=== PATIENT | male | born 1965 | race Caucasian/White ===

== ENCOUNTER 2019-08-09 10:48 | Outpatient (REF) | payer BC, SELFPAY ==
[2019-08-15 11:30] LABS: CO2 Total 30 mEq/L (22-32); Chloride 102 mEq/dL (96-110); Glucose 138 mg/dL (70-100); Potassium 5.6 mEq/L (3.5-5.0); Sodium 141 mEq/L (136-145)
[2019-08-15 11:31] LABS: BUN 18 mg/dL (10-26)
[2019-08-15 11:32] LABS: Calcium 9.9 mg/dL (8.5-10.5); eGFR 110 (>60)
== END 2019-08-09 11:08 ==
LOC: NCHCN 10:48
PROVIDERS: PCP Nurse Practitioner Family; Visit Provider Nurse Practitioner Family
DX: E11.9 Type 2 diabetes mellitus without complications (principal)
CPT/HCPCS: 80048

== ENCOUNTER 2019-11-22 15:08 | Outpatient (REF) | payer BC, SELFPAY ==
[2019-11-22 17:50] LABS: Anion Gap 7.5 mmol/L (3-11); BUN 15 mg/dL (7-18); CO2 30.5 mmol/L (21.0-32.0); CREATININE 0.91 mg/dL (0.70-1.30); Calcium 9.5 mg/dL (8.5-10.1); Calculated LDL 128 mg/dL (<100); Chloride 102 mmol/L (98-107); Cholesterol 223 mg/dL (<200); Glucose 100 mg/dL (74-106); HDL Cholesterol 53 mg/dL (40-60); Potassium 4.4 mmol/L (3.5-5.1); Sodium 140 mmol/L (136-145); Triglyceride 214 mg/dL (<150)
== END 2019-11-22 15:28 ==
LOC: NCHCN 15:08
PROVIDERS: PCP Nurse Practitioner Family; Visit Provider Nurse Practitioner Family
DX: Z00.00 Encounter for general adult medical examination without abnormal findings (principal); I10 Essential (primary) hypertension
CPT/HCPCS: 80048; 80061

== ENCOUNTER 2020-06-05 09:08 | Outpatient (REF) | payer BC, SELFPAY ==
[2020-06-05 19:13] LABS: Hemoglobin A1C 8.4 % (<5.7)
[2020-06-05 19:24] LABS: Calculated LDL 90 mg/dL (<100); Cholesterol 157 mg/dL (<200); HDL Cholesterol 45 mg/dL (40-60); Triglyceride 112 mg/dL (<150)
== END 2020-06-05 09:28 ==
LOC: NCHCN 09:08
PROVIDERS: PCP Nurse Practitioner Family; Visit Provider Nurse Practitioner Family
DX: E11.9 Type 2 diabetes mellitus without complications (principal); I10 Essential (primary) hypertension; E78.5 Hyperlipidemia, unspecified; R06.00 Dyspnea, unspecified; M25.861 Other specified joint disorders, right knee
CPT/HCPCS: 80061; 83036

== ENCOUNTER 2020-12-18 20:22 | Outpatient (REF) | payer BC, SELFPAY ==
[2020-12-18 21:13] LABS: Anion Gap 9.3 mmol/L (3-11); BUN 16 mg/dL (7-18); CO2 27.7 mmol/L (21.0-32.0); CREATININE 0.9 mg/dL (0.70-1.30); Calcium 8.9 mg/dL (8.5-10.1); Chloride 107 mmol/L (98-107); Glucose 121 mg/dL (74-106); Potassium 4.7 mmol/L (3.5-5.1); Sodium 144 mmol/L (136-145)
[2020-12-18 21:17] LABS: Hemoglobin A1C 7.4 % (<5.7)
== END 2020-12-18 20:23 | disposition home or self-care (01) ==
LOC: NCHCN 20:22
PROVIDERS: PCP Nurse Practitioner Family; Visit Provider Nurse Practitioner Family
DX: E11.9 Type 2 diabetes mellitus without complications (principal)
CPT/HCPCS: 80048; 83036

== ENCOUNTER 2022-09-23 15:15 | Outpatient (REF) | payer OTHER, SELFPAY ==
[2022-09-23 16:17] LABS: HCT 40.3 % (40.0-50.0); HGB 13.8 g/dL (13.5-17.5); MCH 32.9 pg (27.0-33.0); MCHC 34.2 % (32.0-36.0); MCV 96 fL (80-95); MPV 9.7 fL (8.0-11.0); Platelet Count 256 10^3/uL (130-400); RDW 11.6 % (11.8-14.1); RDW-SD 40.5 fL; WBC 7.48 10^3/uL (4.4-10.8)
[2022-09-23 16:36] LABS: Anion Gap 7.5 mmol/L (3-11); BUN 22 mg/dL (7-18); CO2 29.5 mmol/L (21.0-32.0); Calcium 9.5 mg/dL (8.5-10.1); Calculated LDL 32 mg/dL (<100); Chloride 103 mmol/L (98-107); Cholesterol 115 mg/dL (<200); Estimated GFR 87.24 (mL/min/1.73m2); Glucose 199 mg/dL (74-106); HDL Cholesterol 46 mg/dL (40-60); Potassium 4.9 mmol/L (3.5-5.1); Sodium 140 mmol/L (136-145); Triglyceride 185 mg/dL (<150)
== END 2022-09-23 15:16 | disposition home or self-care (01) ==
LOC: NCHCN 15:15
PROVIDERS: PCP Nurse Practitioner Family; Visit Provider Nurse Practitioner Family
DX: E11.9 Type 2 diabetes mellitus without complications (principal); I10 Essential (primary) hypertension; E78.5 Hyperlipidemia, unspecified
CPT/HCPCS: 80048; 80061; 85027

== ENCOUNTER 2022-12-23 10:26 | Outpatient (REF) | payer OTHER, SELFPAY ==
--- OUTSIDE RECORDS SUMMARY | 2022-12-23 10:29 | XMS_ITS | Continuity of Care Document ---
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(Discharge Diagnosis) - 12/06/22 Discharge Disposition: Home or Self Care Allergies, Adverse Reactions, Alerts No Known Allergies Functional Status 12/06/22 Other exposure to Infectious Disease Non e Immunizations Given and Recorded Vaccine Date Status Refusal Reason tetanus-diphth toxoids (Td) adult/adol 12/01/22 Gi vatar Medications !-Keflex 500 mg oral capsule 500 mg = 1 cap, Oral, QID, # 28 cap, 0 Refill(s), Pharmacy: [facility] #[id number], 182, cm, 12/01/22 6:16:00 EDT, Height/Length Dosing, 92.99, kg, 12/01/22 6:16:00 EDT, Weight Dosing Start Date: 12/01/22 Stop Date: 12/08/22 Status: Ordered aspirin 81 mg =, Oral, Daily, 0 Refill(s) Start Date: 12/01/22 Status: Ordered gabapentin 300 mg oral capsule 300 mg = 1 cap, Oral, TID, # 270 cap, 0 Refill(s) Start Date: 12/01/22 Status: Ordered Lantus Solostar Pen 100 units/mL subcutaneous solution ADMINISTER 50 UNITS UNDER THE SKIN EVERY NIGHT Start Date: 12/01/22 Status: Ordered lisinopril 5 mg oral tablet 5 mg = 1 tab, Oral, Daily, # 30 tab, 0 Refill(s) Start Date: 12/01/22 Status: Ordered metFORMIN 1000 mg oral tablet 1,000 mg = 1 tab, Oral, BID, # 180 tab, 0 Refill(s) Start Date: 12/01/22 Status: Ordered Trulicity Pen 0.75 mg/0.5 mL subcutaneous solution 0.75 mg = 0.5 mL, Subcutaneous, every week, 0 Refill(s) Start Date: 12/01/22 Status: Ordered Vital Signs Most recent to oldest [Reference Range]: 1 Respiratory Rate [12-24 br/min] 16 br/mi n (12/06/22 6:14 PM) Blood Pressure [90-140/60-90 mmHg] 147/8 3mmHg *HI* (12/06/22 6:14 PM) Weight 92.99 kg (12/06/22 6:14 PM) Weight Measured (lbs) 205.008 lb (12/06/22 6:14 PM) Height 182.88 cm (12/06/22 6:14 PM) Height/Length Measured (inches) 72 inch (12/06/22 6:14 PM) BSA Measured 2.17 m2 (12/06/22 6:14 PM) Body Mass Index 27.8 kg/m2 (12/06/22 6:14 PM) Social History Social History Type Response Tobacco Former tobacco user Tobacco Use:. Sex Hospital Discharge Instructions Patient Education 12/06/2022 18:07:10 Traumatic Finger Amputation Traumatic Finger Amputation A traumatic finger amputation is when a person loses part or all of a finger because of an accidentor injury. This condition is a medical emergency. It needs to be treated right away to prevent moredamage to the finger and to save the lost part of the finger, if that is possible. What are the causes? This condition usually results from an accident that involves: ??? A car. ??? Power tools. ??? Factory work. ??? Farm or lawn equipment. What are the signs or symptoms? Symptoms of this condition include: ??? Bleeding. ??? Pain. ??? Damage to surrounding tissues, such as bones, muscles, tendons, and skin. How is this diagnosed? This condition is diagnosed with a physical exam. During the exam, your health care provider will determine how severe the injury is and the best way to treat it. X-rays may be done to check for damage to the surrounding bones and tissues. How is this treated? This condition is treated by cleaning the wound thoroughly and with medicines for pain. Additional treatment depends on the type of injury that you have and how bad it is: ??? If only the tip of your finger was removed, treatment may involve placing a protective bandage (dressing) over the wound and cleaning the wound regularly. ??? If the injury is severe, a portion of skin may be taken from another part of the body (graft) and attached to the wound site until the wound heals. ??? If a large portion of the finger was cut off, treatment may include a surgical procedure to reattach the finger (replantation). Follow these instructions at home: Medicines ??? Take [id number] and prescription medicines only as told by your health care provider. ??? If you were prescribed an antibiotic medicine, use it as told by your health care provider. Do not stop using the antibiotic even if your condition improves. ??? Do not drive or use heavy machinery while taking prescription pain medicine. Wound care ??? Follow instructions from your health care provider about how to take care of your wound. Make sure you: ??? Wash your hands with soap and water before you change your dressing. If soap and water are not available, use hand tourist adviser. ??? Change your dressing as told by your health care provider. ??? Leave stitches (sutures), skin glue, or adhesive strips in place. These skin closures may need to stay in place for 2 weeks or longer. If adhesive strip edges start to loosen and curl up, you maytrim the loose edges. Do not remove adhesive strips completely unless your health care provider tells you to do that. ??? Check your wound every day for signs of infection. Check for: ??? Redness, swelling, or pain. ??? Fluid or blood. ??? Warmth. ??? Pus or a bad smell. General instructions ??? Do exercises to strengthen your finger and hand as directed by your health care provider. ??? Keep your hand raised above the level of your heart when resting. Contact a health care provider if: ??? Your wound does not seem to be healing well. ??? You have redness, swelling, or pain around your wound. ??? You have fluid or blood coming from your wound. ??? Your wound feels warm to the touch. ??? You have pus or a bad smell coming from your wound. ??? You have a fever. Get help right away if: ??? You have redness spreading or extending from your wound. Summary ??? A traumatic finger amputation is when a person loses part or all of a finger because of an accident or injury. ??? This condition is diagnosed with a physical exam. During the exam your health care provider will determine how severe the injury is and the best way to treat it. ??? Follow instructions from your health care provider about how to take care of your wound. This information is not intended to replace advice given to you by your health care provider. Make sure you discuss any questions you have with your health care provider. Document Revised: 11/12/2020 Document Reviewed: 11/12/2020 Else[employer] Patient Education ?? 2021 [employer]. Physician Outpatient Note * Buffy Priest PA-C: PERFORM Event Display: Office Clinic Note Physician Authored Date: [id number] PABLO SPIVEY :1965 Age:57 years Sex:Male Visit Date:12/06/2022 Chief Complaint w/c second visit - dressing change needed History of Present Illness Patient is a 57-year-old male??that presents to the??occupational health office today??for a dressing change??for traumatic amputation of the??distal phalanx of the right middle finger that occurred??[address] employment. ??He was initially seen in the emergency department and diagnosed with a traumatic amputation.?? No pain. ??He is currently taking antibiotics as prescribed. ??Unfortunately has been unable to get into the hand specialist??and will need a new referral to??[facility] in [facility]. Physical Exam Vitals & Measurements RR:??16?? BP:??147/83?? SpO2:??98%?? HT:??182.88??cm?? WT:??92.99??kg?? BMI:??27.8?? BSA:??2.17?? He is well-appearing in no acute distress, very pleasant. Traumatic amputation of the distal aspect??of right middle finger.?No nail plate involvement. No exposed bone. ??Tissue is??pink. ??Surrounding??tissue??is macerated. ??No active bleeding. Good range of motion at the DIP and IP joint. Medical Decision Making: Traumatic amputation distal phalanx??right middle finger: Dressing change completed here in the office.?The tissue appears healthy??without any evidence of infection. ??Very minimal discomfort.?He will continue ibuprofen and Tylenol as needed as well as the oral??antibiotics.?? I did initiatea new referral to [facility] in the [place]??location. ??Patient will contact them tomorrow??for follow-up this week. ??If unable, he will return to our office in 2 days for??another dressing change??return precautions provided.. 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 The referral will be sent and processed tomorrow. Please wait until noon to call. Patient Education Traumatic Finger Amputation Problem List/Past Medical History Ongoing No qualifying data Historical No qualifying data Medications !-Keflex 500 mg oral capsule, 500 mg= 1 cap, Oral, QID aspirin, 81 mg, Oral, Daily gabapentin 300 mg oral capsule, 300 mg= 1 cap, Oral, TID Lantus Solostar Pen 100 units/mL subcutaneous solution lisinopril 5 mg oral tablet, 5 mg= 1 tab, Oral, Daily metFORMIN 1000 mg oral tablet, 1000 mg= 1 tab, Oral, BID Trulicity Pen 0.75 mg/0.5 mL subcutaneous solution, 0.75 mg= 0.5 mL, Subcutaneous, every week Allergies No Known Allergies Social History Electronic Cigarette/Vaping Electronic Cigarette Use: Never. Tobacco Former tobacco user Tobacco Use:. Immunizations Vaccine Date Status tetanus-diphth toxoids (Td) adult/adol 12/01/2022 Given Electronically Signed on 12/06/22 07:38 PM Buffy Priest PA-C Outpatient Summary note * Buffy Priest PA-C: PERFORM Event Display: Ambulatory Patient Summary Authored Date: [id number] PABLO SPIVEY :1965 Age:57 years Sex:Male Visit Date:12/06/2022 Ambulatory Visit Instructions We would like to thank you for allowing us to assist you with your healthcare needs. The following includes patient education materials and information regarding your injury/illness. Your Next Steps Instructions From Your Care Team Please contact [facility] tomorrow??at [phone]. The referral will be sent and processed tomorrow. Please wait until noon to call. Medications What How Much When Instructions Unchanged aspirin 81 Milligrams Oral (given by mouth) Every day Unchanged cephalexin (!-Keflex 500 mg oral capsule) 1 Capsules Oral (given by mouth) 4 times a day Duration: 7 Days Unchanged dulaglutide (Trulicity Pen 0.75 mg/ 0.5 mL subcutaneous solution) 0.5 Milliliters Subcutaneous (under the skin) Every week Unchanged gabapentin (gabapentin 300 mg oral capsule) 1 Capsules Oral (given by mouth) 3 times a day Unchanged insulin glargine (Lantus Solostar Pen 100 units/ mL subcutaneous solution) ADMINISTER 50 UNITS UNDER THE SKIN EVERY NIGHT ?? 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 16 Blood Pressure?? 147/83?? Height?? 72.00 in (182.88 cm) Weight?? 205.04 lb (92.99 kg) BMI?? 27.8 Allergies No Known Allergies Education Materials Traumatic Finger Amputation A traumatic finger amputation is when a person loses part or all of a finger because of an accidentor injury. This condition is a medical emergency. It needs to be treated right away to prevent moredamage to the finger and to save the lost part of the finger, if that is possible. What are the causes? This condition usually results from an accident that involves: ? A car. ? Power tools. ? Factory work. ? Farm or lawn equipment. What are the signs or symptoms? Symptoms of this condition include: ? Bleeding. ? Pain. ? Damage to surrounding tissues, such as bones, muscles, tendons, and skin. How is this diagnosed? This condition is diagnosed with a physical exam. During the exam, your health care provider will determine how severe the injury is and the best way to treat it. X-rays may be done to check for damage to the surrounding bones and tissues. How is this treated? This condition is treated by cleaning the wound thoroughly and with medicines for pain. Additional treatment depends on the type of injury that you have and how bad it is: ? If only the tip of your finger was removed, treatment may involve placing a protective bandage (dressing) over the wound and cleaning the wound regularly. ? If the injury is severe, a portion of skin may be taken from another part of the body (graft) and attached to the wound site until the wound heals. ? If a large portion of the finger was cut off, treatment may include a surgical procedure to reattach the finger (replantation). Follow these instructions at home: Medicines ? Take [id number] and prescription medicines only as told by your health care provider. ? If you were prescribed an antibiotic medicine, use it as told by your health care provider. Do not stop using the antibiotic even if your condition improves. ? Do not drive or use heavy machinery while taking prescription pain medicine. Wound care ? Follow instructions from your health care provider about how to take care of your wound. Make sure you: ? Wash your hands with soap and water before you change your dressing. If soap and water are not available, use hand tourist adviser. ? Change your dressing as told by your health care provider. ? Leave stitches (sutures), skin glue, or adhesive strips in place. These skin closures may need to stay in place for 2 weeks or longer. If adhesive strip edges start to loosen and curl up, you may trim the loose edges. Do not remove adhesive strips completely unless your health care provider tells you to do that. ? Check your wound every day for signs of infection. Check for: ? Redness, swelling, or pain. ? Fluid or blood. ? Warmth. ? Pus or a bad smell. General instructions ? Do exercises to strengthen your finger and hand as directed by your health care provider. ? Keep your hand raised above the level of your heart when resting. Contact a health care provider if: ? Your wound does not seem to be healing well. ? You have redness, swelling, or pain around your wound. ? You have fluid or blood coming from your wound. ? Your wound feels warm to the touch. ? You have pus or a bad smell coming from your wound. ? You have a fever. Get help right away if: ? You have redness spreading or extending from your wound. Summary ? A traumatic finger amputation is when a person loses part or all of a finger because of an accidentor injury. ? This condition is diagnosed with a physical exam. During the exam your health care provider will determine how severe the injury is and the best way to treat it. ? Follow instructions from your health care provider about how to take care of your wound. This information is not intended to replace advice given to you by your health care provider. Make sure you discuss any questions you have with your health care provider. Document Revised: 11/12/2020 Document Reviewed: 11/12/2020 [employer] Patient Education ?? 2021 [employer] Electronically Signed on: 12/06/2022 19:08 EDTSigned by:BAY
--- OUTSIDE RECORDS SUMMARY | 2022-12-23 10:29 | XMS_ITS | Continuity of Care Document ---
Author Name Unknown Organization [facility] Address [address] [place] [address] Encounter LTTL_ME FIN NBR [id number] Date(s): 12/01/22 - 12/01/22 [facility] [address], [place] [address] Encounter Diagnosis Amputation of finger tip(Discharge Diagnosis) - 12/01/22 Discharge Disposition: Home or Self Care Attending Physician: Surinder Everett MD Admitting Physician: Surinder Everett MD Allergies, Adverse Reactions, Alerts No Known Allergies Immunizations Given and Recorded Vaccine Date Status Refusal Reason tetanus-diphth toxoids (Td) adult/adol 12/01/22 Gi avtar Medications !-Keflex 500 mg oral capsule 500 mg = 1 cap, Oral, QID, # 28 cap, 0 Refill(s), Pharmacy: [facility] #[id number], 182, cm, 12/01/22 6:16:00 EDT, Height/Length Dosing, [...] 0 Refill(s) Start Date: 12/01/22 Status: Ordered Mental Status 12/01/22 Eye Opening Response [place] Spontaneous ly Best Verbal Response Adrián Oriented Best Motor Response Adrián Obeys comman ds Adrián Coma Score 15 Results Radiology Reports * Exam Date Time Procedure Performing Provider Status 12/01/22 6:22 AM XR Finger(s) 2+ Views Right DomainUser , Generated; Auth (Verified) Notes: (XR Finger(s) 2+ Views Right) Reason For Exam: trauma XR Finger(s) 2+ Views Right EXAM DESCRIPTION: XR Finger(s) 2+ Views Right 12/01/2022 INDICATION: TRAUMA TECHNIQUE: Long finger right hand, two views COMPARISON: None IMPRESSION: Status post traumatic amputation of the 3rd distal phalanx at the base of the 3rd distal phalanx. No DIP joint articular surface extension is identified. Otherwise no acute fracture or dislocation. No regional radiopaque soft tissue foreign body. JOB #: [id number] Final Signed by: Kevon Miguel MD Signed (Electronic Signature): 12/01/2022 8:29 am Vital Signs Most recent to oldest [Reference Range]: 1 Temperature Temporal Artery [36-38 Deg C ] 36.3 Deg C (12/01/22 5:39 AM) Peripheral Pulse Rate [60-100 bpm] 76 bp m (12/01/22 5:39 AM) Blood Pressure [90-140/60-90 mmHg] 142/8 6mmHg *HI* (12/01/22 5:39 AM) Weight Dosing 92.99 kg (12/01/22 6:16 AM) Weight Estimated 92.99 kg (12/01/22 5:39 AM) Height/Length Dosing 182.000 cm (12/01/22 6:16 AM) Height/Length Estimated 182.000 cm (12/01/22 5:39 AM) Social History Social History Type Response Tobacco Former tobacco user Tobacco Use:. Sex Hospital Discharge Instructions Patient Education 12/01/2022 05:56:23 Nonsutured Laceration Care Nonsutured Laceration Care A laceration is a cut that may go through all layers of the skin and into the tissue that is right under the skin. A laceration is usually stitched up (sutured) or closed with adhesive strips or skin glue shortly after the injury happens. However, if the wound is dirty or if several hours pass before medical treatment is provided, it is likely that bacteria will enter the wound. Closing a laceration after bacteria have entered it increases the risk for infection. In these cases, your health care provider may leave the laceration open (nonsutured) and cover it with a bandage (dressing). This type of treatment helps prevent infection and allows the wound to heal from the deepest layer of tissue damage up tothe surface. Nonsutured healing is also known as secondary wound healing. This is more common for wounds that involve loss of tissue, are irregular in shape and size, or are on surfaces of the body where movementmakes sutures or other closure methods impossible. How to care for your nonsutured laceration Follow instructions from your health care provider about how to take care of your wound. ??? Keep the wound clean and dry. ??? Change any dressings as told by your health care provider. This includes changing the dressing when it starts to smell, or when it gets wet or dirty. ??? Clean the wound one time each day, or as often as told by your health care provider. To clean your wound: 1. Wash your hands with soap and water for at least 20 seconds before and after touching your woundor changing your dressing. If soap and water are not available, use hand bench scientist. 2. Remove any dressing as told by your health care provider. 3. Clean the wound with water or irrigation solution as told by your health care provider. 4. Pat the wound dry with a clean towel. Do not rub the wound. 5. Apply a thin layer of antibiotic ointment or another topical ointment to the wound as told by your health care provider. This will prevent infection and keep the dressing from sticking to the wound. 6. Apply a new dressing as told by your health care provider. ??? Check your wound every day for signs of infection. Watch for: ??? More redness, swelling, or pain. ??? Fluid or blood. ??? Warmth. ??? Pus or a bad smell. ??? Do not take baths, swim, or do anything that puts your wound underwater until your health care provider approves. ??? Do not scratch or pick at the wound. ??? Do not usedisinfectants or antiseptics, such as rubbing alcohol, to clean your wound unless told by your health care provider. Follow these instructions at home: Medicines ??? Take lkdo-wgn-oxkqoiu and prescription medicines only as told by your health care provider. ??? If you were prescribed an antibiotic medicine, take or apply it as told by your health care provider. Do not stop using the antibiotic even if your condition improves. Managing pain and swelling ??? If directed, put ice on the injured area. To do this: ??? Put ice in a plastic bag. ??? Place a towel between your skin and the bag. ??? Leave the ice on for 20 minutes, 2???3 times a day. ??? Remove the ice if your skin turns bright red. This is very important. If you cannot feel pain, heat, or cold, you have a greater risk of damage to the area. ??? Raise (elevate) the injured area above the level of your heart while you are sitting or lying down. General instructions ??? Avoid any activity that could cause your laceration to reopen. ??? Keep all follow-up visits. This is important. Contact a health care provider if: ??? You received a tetanus shot and you have swelling, severe pain, redness, or bleeding at the injection site. ??? Your pain is not controlled with medicine. ??? You have any of these signs of infection: ??? More redness, swelling, or pain around your wound. ??? Fluid or blood coming from your wound. ??? Warmth coming from your wound. ??? Pus or a bad smell coming from your wound. ??? A fever. ??? You notice something coming out of the wound, such as wood or glass. ??? You notice a change in the color of your skin near your wound. ??? You develop a new rash. ??? You need to change the dressing often. ??? You develop numbness around your wound. Get help right away if: ??? Your pain suddenly increases and is severe. ??? You develop severe swelling around the wound. ??? The wound is on your hand or foot, and you cannot properly move a finger or toe. ??? The wound is on your hand or foot, and you notice that your fingers or toes look pale or bluish. ??? You have a red streak going away from your wound. ??? You develop painful lumps near the wound or on skin anywhere else on your body. Summary ??? A laceration is a cut that may go through all layers of the skin and into the tissue that is right under the skin. It is usually closed with stitches, tape, or skin glue shortly after the injury happens. ??? If a wound is dirty or if several hours pass before medical treatment is provided, the laceration may be kept open (nonsutured) and covered with a bandage. ??? Nonsutured laceration helps prevent infection and allows the wound to heal from the deepest layer of tissue damage up to the surface. ??? Follow instructions from your health care provider about how to take care of your wound. This information is not intended to replace advice given to you by your health care provider. Make sure you discuss any questions you have with your health care provider. Document Revised: 10/07/2021 Document Reviewed: 10/07/2021 Elsevier Patient Education ?? 2021 [employer]. Follow Up Care 12/01/2022 05:39:28 With:eKvon Thompson MD Address: [address] [place] [id number]- When:12 Hours Comments:To make an appointment Discharge instructions * Event Display: Discharge Instructions Physician Emergency department Note * Surinder Everett MD: PERFORM Event Display: ED Note Physician Authored Date: [id number] PABLO SPIVEY :1965 Age:57 years Sex:Male Visit Date:12/01/2022 Basic Information Time Seen: Surinder Everett MD / 12/01/2022 06:01 Chief Complaint Patient arrive by private vehicle with report of finger laceration to the distal right hand third digit with possible amputation. History Of Present Illness: Patient??comes in after suffering an amputation of his??right third finger after it was crushed while at work. ??He denies any other injuries Review of Systems: Review of systems negative other than that stated above Physical Exam Vitals & Measurements T:??36.3?C ??(Temporal Artery)?? HR:??76??(Peripheral)?? BP:??142/86?? SpO2:??97%?? HT:??182.000??cm?? WT:??92.99??kg??(Estimated)?? Pain Score:??1?? O2 Therapy:??Room air?? HEAD: _normocephalic, midface stable, no visible bleeding ?? MUSCULOSKELETAL: _He has an amputation to the distal aspect of the right??third finger. ??The nail??distally is not present.?? There is no other injuries noted ?? NEUROLOGIC: [_GCS 15, no focal abnormality PSYCHIATRIC: _linear thought process, normal mood/affect Procedure No Qualifying Data Reexamination/Reevaluation Patient given 2 g of Ancef given tetanus injection. ??He had the finger cleansed and dressed.?? He refuses need for pain medications he is prescribed a week of Keflex. ??He will follow-up with??Dr. Thompson??hand orthopedist within the next 24 hours to make an appointment??for further??treatment andreturn to ED as needed Assessment/Plan 1.??Amputation of finger tip??S68.119A Orders: !-Keflex 500 mg oral capsule, 500 mg = 1 cap, Oral, QID, # 28 cap, 0 Refill(s), Pharmacy: [facility] #[id number], 182, cm, 12/01/22 6:16:00 EDT, Height/Length Dosing, 92.99, kg, 12/01/22 6:16:00EDT, Weight Dosing Discharge Patient, 12/01/22 6:54:00 EDT XR Finger(s) 2+ Views Right, 12/01/22 6:08:00 EDT, Stat, Reason: trauma, Transport Mode: Ambulatory Patient Education Nonsutured Laceration Care Follow Up With When Contact Information Kevon Thompson MD Within 12 Hours [address] [id number]- Additional Instructions: To make an appointment Medication Reconciliation New Prescription cephalexin (!-Keflex 500 mg oral capsule)1 Capsules Oral (given by mouth) 4 times a day for 7 Days.Refills: 0. ?? Unchanged [id number] Milligrams Oral (given by mouth) every day. ?? dulaglutide (Trulicity Pen 0.75 mg/0.5 mL subcutaneous solution)0.5 Milliliters Subcutaneous (underthe skin) every week. ?? gabapentin (gabapentin 300 mg oral capsule)1 Capsules Oral (given by mouth) 3 times a day. ?? insulin glargine (Lantus Solostar Pen 100 units/mL subcutaneous solution)ADMINISTER 50 UNITS UNDER THE SKIN EVERY NIGHT. ?? lisinopril (lisinopril 5 mg oral tablet)1 tab Oral (given by mouth) every day. ?? metFORMIN (metFORMIN 1000 mg oral tablet)1 tab Oral (given by mouth) 2 times a day. Problem List/Past Medical History Ongoing No qualifying data Historical No qualifying data Medication Administration Given Ancef, 2 g, IV Piggyback tetanus-diphth toxoids (Td) adult/adol, 0.5 mL, IM Allergies No Known Allergies Social History Electronic Cigarette/Vaping Electronic Cigarette Use: Never. Tobacco Former tobacco user Tobacco Use:. Diagnostic Results Diagnostic Study Interpretation: X-ray of the finger shows a amputation through the??distal??phalanx Electronically Signed on 12/01/22 07:24 AM Surinder Everett MD Emergency department Discharge instructions * Surinder Everett MD: PERFORM Event Display: ED Discharge Information Authored Date: [id number] PABLO SPIVEY :1965 Age:57 years Sex:Male Visit Date:12/01/2022 Discharge Instructions We would like to thank you for allowing us to assist you with your healthcare needs. The following includes patient education materials and information regarding your injury/illness. Diagnosis from Today's Visit Amputation of finger tip Discharge Vitals Temperature??(Temporal Artery) 97.3 ??F (36.3 ??C) Heart Rate??(Peripheral) 76 Blood Pressure?? 142/86?? Height?? 71.65 in (182.000 cm) Weight??(Estimated) 205.04 lb (92.99 kg) Allergies No Known Allergies What to Do Next Instructions from Your Care Team Elevate finger. ??Keep dressing??on. ??Call orthopedics ([facility])??today to make an appointment. ??Uvii-xno-xoyxcmb medicine as needed for pain??return to ED as needed You Need to Schedule the Following Appointments Follow Up with??Kevon Thompson MD When:??Within 12 Hours Why: To make an appointment Where: [address] [place] [phone]- You were treated today on an emergency basis; it may be spann to contact your primary care provider to notify them of your visit today. You may have been referred to your regular doctor or a specialist, please follow up as instructed. If your condition worsens or you can't get in to see the doctor, contact the Emergency Department. Medications What How Much When Instructions Next Dose New cephalexin (!-Keflex 500 mg oral capsule) 1 Capsules Oral (given by mouth) 4 times a day Duration: 7 Days Pickup at [facility] #[id number] Unchanged aspirin 81 Milligrams Oral (given by mouth) Every day Unchanged dulaglutide (Trulicity Pen 0.75 mg/ 0.5 [...] (given by mouth) 2 times a day Pharmacy Information [facility] #[id number]: [address] [place], [place] [phone] Education Materials Nonsutured Laceration Care A laceration is a cut that may go through all layers of the skin and into the tissue that is right under the skin. A laceration is usually stitched up (sutured) or closed with adhesive strips or skin glue shortly after the injury happens. However, if the wound is dirty or if several hours pass before medical treatment is provided, it is likely that bacteria will enter the wound. Closing a laceration after bacteria have entered it increases the risk for infection. In these cases, your health care provider may leave the laceration open (nonsutured) and cover it with a bandage (dressing). This type of treatment helps prevent infection and allows the wound to heal from the deepest layer of tissue damage up tothe surface. Nonsutured healing is also known as secondary wound healing. This is more common for wounds that involve loss of tissue, are irregular in shape and size, or are on surfaces of the body where movementmakes sutures or other closure methods impossible. How to care for your nonsutured laceration Follow instructions from your health care provider about how to take care of your wound. ? Keep the wound clean and dry. ? Change any dressings as told by your health care provider. This includes changing the dressing whenit starts to smell, or when it gets wet or dirty. ? Clean the wound one time each day, or as often as told by your health care provider. To clean your wound: 1.?? Wash your hands with soap and water for at least 20 seconds before and after touching your wound orchanging your dressing. If soap and water are not available, use hand bench scientist. 2.?? Remove any dressing as told by your health care provider. 3.?? Clean the wound with water or irrigation solution as told by your health care provider. 4.?? Pat the wound dry with a clean towel. Do not rub the wound. 5.?? Apply a thin layer of antibiotic ointment or another topical ointment to the wound as told by your health care provider. This will prevent infection and keep the dressing from sticking to the wound. 6.?? Apply a new dressing as told by your health care provider. ? Check your wound every day for signs of infection. Watch for: ? More redness, swelling, or pain. ? Fluid or blood. ? Warmth. ? Pus or a bad smell. ? Do not take baths, swim, or do anything that puts your wound underwater until your health care provider approves. ? Do not scratch or pick at the wound. ? Do not usedisinfectants or antiseptics, such as rubbing alcohol, to clean your wound unless told byyour health care provider. Follow these instructions at home: Medicines ? Take sxyf-nsq-kbstqpc and prescription medicines only as told by your health care provider. ? If you were prescribed an antibiotic medicine, take or apply it as told by your health care provider. Do not stop using the antibiotic even if your condition improves. Managing pain and swelling ? If directed, put ice on the injured area. To do this: ? Put ice in a plastic bag. ? Place a towel between your skin and the bag. ? Leave the ice on for 20 minutes, 2???3 times a day. ? Remove the ice if your skin turns bright red. This is very important. If you cannot feel pain, heat, or cold, you have a greater risk of damage to the area. ? Raise (elevate) the injured area above the level of your heart while you are sitting or lying down. General instructions ? Avoid any activity that could cause your laceration to reopen. ? Keep all follow-up visits. This is important. Contact a health care provider if: ? You received a tetanus shot and you have swelling, severe pain, redness, or bleeding at the injection site. ? Your pain is not controlled with medicine. ? You have any of these signs of infection: ? More redness, swelling, or pain around your wound. ? Fluid or blood coming from your wound. ? Warmth coming from your wound. ? Pus or a bad smell coming from your wound. ? A fever. ? You notice something coming out of the wound, such as wood or glass. ? You notice a change in the color of your skin near your wound. ? You develop a new rash. ? You need to change the dressing often. ? You develop numbness around your wound. Get help right away if: ? Your pain suddenly increases and is severe. ? You develop severe swelling around the wound. ? The wound is on your hand or foot, and you cannot properly move a finger or toe. ? The wound is on your hand or foot, and you notice that your fingers or toes look pale or bluish. ? You have a red streak going away from your wound. ? You develop painful lumps near the wound or on skin anywhere else on your body. Summary ? A laceration is a cut that may go through all layers of the skin and into the tissue that is right under the skin. It is usually closed with stitches, tape, or skin glue shortly after the injury happens. ? If a wound is dirty or if several hours pass before medical treatment is provided, the laceration may be kept open (nonsutured) and covered with a bandage. ? Nonsutured laceration helps prevent infection and allows the wound to heal from the deepest layer of tissue damage up to the surface. ? Follow instructions from your health care provider about how to take care of your wound. This information is not intended to replace advice given to you by your health care provider. Make sure you discuss any questions you have with your health care provider. Document Revised: 10/07/2021 Document Reviewed: 10/07/2021 [employer] Patient Education ?? 2021 [employer] Tests Performed Medications and Immunizations Administered Given Ancef, 2 g, IV Piggyback tetanus-diphth toxoids (Td) adult/adol, 0.5 mL, IM Patient/Armoring Machine Operator Signature Patient Name:PABLO SPIVEY I have received this information and my questions have been answered. Patient/Armoring Machine Operator Name: Patient/Armoring Machine Operator Signature: Relationship to Patient: Witness Name/Signature: Date: Electronically Signed on: 12/01/2022 06:57 EDTSigned by:RAMY XR Finger - right 2 Views * Kevon Miguel MD: VERIFY, VERIFY Event Display: Report EXAM DESCRIPTION: XR Finger(s) 2+ Views Right 12/01/2022 INDICATION: TRAUMA TECHNIQUE: Long finger right hand, two views COMPARISON: None IMPRESSION: Status post traumatic amputation of the 3rd distal phalanx at the base of the 3rd distal phalanx. No DIP joint articular surface extension is identified. Otherwise no acute fracture or dislocation. No regional radiopaque soft tissue foreign body. JOB #: [id number] Final Signed by: Kevon Miguel MD Signed (Electronic Signature): 12/01/2022 8:29 am Patient Care team information Care Team Personnel Name: Surinder Everett MD Position: Physician Member Role: ED Physician Address: Address: [address] [place] [id number] Name: Ambrosio Adams Position: Nurse Member Role: ED Nurse
[2022-12-23 15:31] LABS: COMMENT (LAB VIEW ONLY) 136.88 mg/dL; Microalb ug/mg Crea 5.9 ug/mg Cr
== END 2022-12-23 10:27 | disposition home or self-care (01) ==
LOC: NCHCN 10:26
PROVIDERS: PCP Nurse Practitioner Family; Visit Provider Physician Assistant
DX: E11.9 Type 2 diabetes mellitus without complications (principal)
CPT/HCPCS: 82043; 82570

== ENCOUNTER 2023-09-22 16:22 | Outpatient (REF) | payer OTHER, SELFPAY ==
[2023-09-22 15:44] LABS: ALT 33 U/L (16-63); AST 7 U/L (15-37); Alkaline Phosphatase 64 U/L (46-116); Anion Gap 6.7 mmol/L (3-11); BUN 24 mg/dL (7-18); Bilirubin, Total 0.5 mg/dL (0.2-1.0); CO2 32.3 mmol/L (21.0-32.0); Calcium 9.5 mg/dL (8.5-10.1); Calculated LDL 46 mg/dL (<100); Chloride 103 mmol/L (98-107); Cholesterol 102 mg/dL (<200); Glucose 204 mg/dL (74-106); HDL Cholesterol 37 mg/dL (40-60); Sodium 142 mmol/L (136-145); Total Protein 7.4 g/dL (6.4-8.2); Triglyceride 95 mg/dL (<150)
[2023-09-22 16:49] LABS: Hemoglobin A1C 8.1 % (<5.7)
[2023-09-22 23:13] LABS: PSA, Screening 0.7 ng/mL (<=3.5)
== END 2023-09-22 16:23 | disposition home or self-care (01) ==
LOC: NCHCN 16:22
PROVIDERS: Orthopaedic Surgery; PCP Nurse Practitioner Family; Visit Provider Physician Assistant
DX: E78.5 Hyperlipidemia, unspecified (principal); Z12.5 Encounter for screening for malignant neoplasm of prostate; E11.9 Type 2 diabetes mellitus without complications
CPT/HCPCS: 80053; 80061; 84153; 83036

== ENCOUNTER 2024-06-28 06:48 | Day surgery (SDC) | payer OTHER, SELFPAY ==
--- NOTE | 2024-06-27 13:27 | W.PM.DSUDISC ---
Date of service: 06/28/24 Time of Service: 08:44 Discharge Plan Disposition Patient Disposition: Home Condition: Good Discharge Details Reason For Visit: screening colonscopy Attending Provider: Alberto Camilo Primary Care Provider: Unknown,Unknown Home Meds and New Rx's Prescriptions: Continued atorvastatin 20 mg tablet 20 mg PO QHS lisinopril 5 mg tablet 5 mg PO DAILY gabapentin 300 mg capsule 600 mg PO TID aspirin 81 mg tablet,delayed release (DR/EC) 81 mg PO DAILY metformin 1,000 mg tablet 1,000 mg PO BID Ozempic 1 mg/dose (4 mg/3 mL) pen injector 1 mg subcut QWEEK insulin glargine [Lantus Solostar U-100 Insulin] 100 unit/mL (3 mL) insulin pen 40 unit subcut HS dyanptk-xafctnjym-cixy 333-133-5 mg tablet 1 tab PO DAILY (DME) lancets [Accu-Chek Multiclix Lancet] 1 EACH misc 1 ea Miscellaneous TID Qty: 100 11RF Rx Instructions: may substitute any covered brand (DME) blood-glucose meter, drum-type [Accu-Chek Compact Plus Care] 1 EACH kit 1 ea Miscellaneous TID Qty: 1 0RF (DME) blood sugar diagnostic [Blood Glucose Test] 1 EACH strip 1 ea Miscellaneous TID Qty: 100 11RF Rx Instructions: may substitute any covered brand (DME) pen needle, diabetic [1st Tier Unifine Pentips] 1 EACH needle 1 ea Miscellaneous QID Qty: 100 5RF Discontinued bisacodyl [Dulcolax (bisacodyl)] 5 mg tablet,delayed release (DR/EC) 5 mg PO ONCE Qty: 4 0RF Rx Instructions: Take per colonoscopy instructions provided by ordering providers office polyethylene glycol 3350 17 gram/dose powder 17 g PO ONCE Qty: 238 0RF Rx Instructions: Take per colonoscopy instructions provided by ordering providers office Discharge Instructions Instructions: Colon polyps, Diverticulosis Additional Instructions: Emmie, was pleasure meeting you today, and I hope you are comfortable during the procedure. Everything went very smoothly. I did find and remove 1 very small polyp today. It may not even be a true polyp. Regardless, I will send it off to the pathologist for their review. We will use the information from their analysis to help inform the timing of your next colonoscopy. Incidentally, you have a little bit of diverticulosis and internal hemorrhoids as well. My basic recommendations for both of these is to maintain a diet that is rich in fiber, and to stay well-hydrated and avoid symptoms of constipation. The results from the polyp analysis will take about a week or 2, but once the office has had information, we will be in touch. If you have any questions in the meantime, please do not hesitate to ask. 1. If tolerated, consume a soft, low fiber diet for 1-2 days. 2[address] Do not drive, drink alcohol, operate machinery, make critical decisions, or do activities that require coordination or balance for 24 hours. 3. Because air was put into your colon during the procedure, expelling air from your rectum (passing gas or farting) is normal. 4. You may not have a bowel movement for 1-3 days because of the colonoscopy prep. This is normal. 5. Go directly to the emergency room if you notice any of the following: Develop chills (warm to touch), or if you have a thermometer and your temperature is above 101 Difficulty breathing or difficultly swallowing Persistent vomiting Severe abdominal pain, other than gas cramps Severe chest pain Black, tarry stools Any bleeding ? exceeding one tablespoon 6. Call your physician if the site where your intravenous was started becomes red, swollen, painful, and warm to touch. 7. Your physician has reviewed your pre-procedure medications. Please continue to take those medications as previously ordered. You will be given specific information/education regarding any changes to your medications before leaving. Stand Alone Forms: Anesthesia Discharge InstIngrid, Yair Adair (DSU) Activity:: Activity as Tolerated Diet:: As Tolerated Discharge Orders Discharge Orders: Discharge Order (Routine); Ordered 06/27/24 Ordered By: Alberto Camilo DS: Diagnosis Discharge Diagnosis (1) Encounter for screening colonoscopy: Status: Acute Asessment and Plan: Follow-up on polypectomy results
--- NOTE | 2024-06-27 13:29 | COLE_ITS ---
Date of service: 06/28/24 Time of Service: 08:46 Colonoscopy Report Date of procedure: 06/28/24 Pre-op diagnosis general: screening colonsocopy Post-op diagnosis procedure note: other (Colon polyps, diverticulosis, internal hemorrhoids) Procedure: colonoscopy with polypectomy Surgeon: Alberto Camilo Anesthesia Type: General:No Airway Estimated blood loss (mL): 5 Pathology: other (0.25 cm flat polyp at 100 cm) Complications: None Disposition: same day Indications: Shen is a 58 year old man with a history of adenomatous polyps. He needs his next screening colonoscopy Prep: Miralax/Dulcolax Procedure Start Time: 08:16 Procedure End Time: 08:37 Retraction Time: 15 Findings: Internal hemorrhoids, sigmoid diverticulosis, 0.25 cm flat polyp at 100 cm Procedure Description: After the induction of anesthesia, and with the patient in left lateral decubitus position, I began by performing an external anorectal exam.? Perineum and skin were normal, as was the anal verge.? There was no evidence of external hemorrhoids.? Next, I performed a digital rectal exam.? I did not appreciate any abnormal findings.? Next, I advanced a colonoscope into the rectal vault.? I performed retroflexion.? There are internal hemorrhoids.? Using insufflation, I then advanced the colonoscope beyond the rectal folds and into the sigmoid colon before advancing towards the cecum.? There is some sigmoid diverticulosis.? The scope was noted to be in the cecum by identification of the ileocecal valve and appendiceal orifice.? I then began withdrawing the colonoscope using repeated irrigation as necessary for full evaluation of the colonic mucosa. ?Around 100 cm from the anal verge was a 0.25 cm flat polyp. This was removed with cold forceps polypectomy without any difficulty. There was minimal bleeding. Once the scope was withdrawn to the level of the rectum, great care was taken to examine portions of the rectal folds.? Finally, the scope was withdrawn and the patient was brought to the same-day surgery recovery unit as the anesthetic wore off. ?The findings and instructions were shared with the patient prior to discharge. [place] Bowel Prep [place] Bowel Prep Right Colon: 2 Left Colon: 3 Transverse Colon: 3 Total Score: 8
[2024-06-28] MEDS: Normal Saline Flush 10 ML SYR IV (07:21)
--- NOTE | 2024-06-28 07:41 | ANES.PREOP_ITS ---
General Info Date of Service Date Performed: 06/28/24 Height: 6 ft Weight: 96.3 kg Body Mass Index (BMI): 28.8 Surgical Procedure: Operation Date: 06/28/24 08:20 Proposed Procedure Side Surgeon houston Camilo MD Meds Allergies and Home Medications Allergies Allergy/AdvReac Type Severity Reaction Status Date / Time No Known Allergies Allergy Verified 06/28/24 07:01 Home Medication ?Medication ?Instructions ?Recorded blood sugar diagnostic (Blood #100 strips 09/03/17 Glucose Test strips) blood-glucose meter, drum-type ##1 09/03/17 (Accu-Chek Compact Plus Care kit) lancets (Accu-Chek Multiclix #100 ea 09/03/17 Lancet) pen needle, diabetic 31 gauge x ##100 09/03/1712/27 (1st Tier Unifine Pentips) aspirin 81 mg tablet,delayed 81 mg PO DAILY 06/13/23 release atorvastatin 20 mg tablet 20 mg PO QHS 06/13/23 gabapentin 300 mg capsule 600 mg PO TID 06/13/23 lisinopril 5 mg tablet 5 mg PO DAILY 06/13/23 czdwpfc-gpenwahwh-hecf 333 mg-133 1 tab PO DAILY 04/08/24 mg-5 mg tablet insulin glargine 100 unit/mL (3 40 unit subcut HS 04/08/24 mL) subcutaneous pen (Lantus Solostar U-100 Insulin) metformin 1,000 mg tablet 1,000 mg PO BID 04/08/24 semaglutide 1 mg/dose (4 mg/3 mL) 1 mg subcut QWEEK 04/08/24 subcutaneous pen injector (Ozempic) Current Visit Medications: Current Medications Generic Name Dose Route Start Last Admin Trade Name Freq PRN Reason Stop Dose Admin IV Miscellaneous Supplies 1 each 06/28/24 06:00 Iv Access IV 06/28/24 23:59 DIRECTED [facility] Ondansetron HCl 4 mg 06/27/24 13:30 Ondansetron 4 Mg/2 Ml Vial IVP 07/27/24 13:29 Q4H PRN PRN Nausea / Vomiting Sodium Chloride 0 ml 06/28/24 06:00 06/28/24 07:21 Normal Saline Flush 10 Ml Syr IV 06/28/24 23:59 10 ml PRN PRN Administration Sodium Chloride 0 ml 06/28/24 06:00 Normal Saline 10 Ml Vial IJ 06/28/24 23:59 DIRECTED PRN Sterile Water 0 ml 06/28/24 06:00 Water,Injection,Sterile 10 Ml Vial IJ 06/28/24 23:59 DIRECTED PRN PFSH Active Problems Active Problems: Problem Status Onset Code Encounter for screening colonoscopy Acute Z12.11 Diabetes mellitus Chronic E11.9 Peripheral neuropathy Acute G62.9 Hypertension Chronic I10 RLL pneumonia Acute J18.1 Gastroenteritis Acute K52.9 Hypomagnesemia Acute E83.42 Hypokalemia Acute E87.6 Leukocytosis Acute D72.829 Nausea & vomiting Acute R11.2 DKA (diabetic ketoacidoses) Acute E13.10 Medical History Medical History (Updated 06/27/24 @ 13:28 by Alberto Camilo MD) Hyperlipidemia Right knee gives way Tobacco Smoking/Tobacco Use Status: Former Tobacco Use Alcohol Alcohol Intake: former Substance Use Substance use: Socially Substance use type: marijuana Vital Signs and Lab Results Point of Care Results Point of Care Results: Finger Stick Blood Glucose 147 06/28/24 07:11 Lab Results Blood Type / Crossmatch: No Data to Display Complete Blood Count: No Data to Display Complete Metabolic Panel: No Data to Display Liver Function Panel: No Data to Display Coagulation Panel: No Data to Display Cardiac Panel: No Data to Display Arterial Blood Gas: No Data to Display Venous Blood Gas: No Data to Display Pancreas Panel: No Data to Display Thyroid Panel: No Data to Display Infectious Disease: No Data to Display Blood Cultures: No Data to Display Toxicology Panel: No Data to Display Anesthesia Assessment and Plan Anesthesia History Personal History: No History of Anesthesia Complications Family History: No Family History of Anesthesia Complications Exercise Tolerance Exercise Tolerance: Metabolic Equivalents>4 Pertinent Negatives Pertinent Negatives: No Symptoms of GERD, No Major Cardiovascular Symptoms or Complaints, No Major Pulmonary Symptoms or Complaints and No History of CVA/TIA Cardiac & Pulmonary Exam Cardiac Exam: Normal S1/S2 Heart Sounds Pulmonary Exam: Clear Bilateral Breath Sounds Implantable Cardiac Device Does patient have a Pacemaker or an ICD?: No Airway Exam Known Difficult Airway: No Mallampati Class: 1 Mouth Opening: Normal (> 3cm) Thyromental Distance: Greater than 3 cm Neck Range of Motion: Full ROM Neck Circumference: Normal Teeth Condition: Generalized Poor Dentition (many broken, none loose per patient) ASA Classification ASA Score: ASA 2 Emergency Case?: No NPO Status NPO Status: NPO Clears >2 hours, Solids >8 hours Anesthesia Plan Resuscitation Status: Full Code Anesthesia Technique: General Anesthesia Airway Planned: Natural Airway Monitors Used: Standard Monitors Preoperative Comments:: 58 y/o male with history of HTN, Diabetes and peripheral neuropathy presents for colonoscopy screening. His last screening was in 2011 and was remarkable for tubular adenomatous polyp.
[2024-06-28 08:03] VITALS: BMI 28.8
--- NOTE | 2024-06-28 08:25 | BOWEL_PTH ---
PATIENT: Shen Munoz LOC: [facility] U#:[id number] AGE/SX: 58/M ROOM: RE06/28/[address]: Alberto Camilo MD : 1965 BED: DIS: 06/28/2024 SPEC #: [id number] RECD: 06/28/24 12:58 STATUS: ALICIA REQ #: [id number] JUNIE: 06/28/24 08:[address]: Alberto Camilo DEPT: Surgical Specimen RECD BY: Amaya Woodall ENTERED: 06/28/24 12:59 SP TYPE: Bowel OTHR DR: Unknown,Unknown Tissues: 1 - BIOPSY BOWEL Procedures: GROSS AND MICRO LEVEL 4 Comments: [id number]
[2024-06-28 08:40] VITALS: BP 112/93; PULSE 85; RESP 16; TEMP 36.3; O2SAT 92
--- NOTE | 2024-06-28 08:52 | W.ANESPOSTOP ---
Postoperative Evaluation Date, Time and Location Date Performed: 06/28/24 Time Performed: 08:53 Patient Location: Day Surgery Unit Vital Signs Most Recent Imported Vital Signs: Most Recent Vital Signs Temp Pulse Resp BP Pulse Ox 36.3 C L 85 16 112/93 H 92 06/28/24 08:40 06/28/24 08:40 06/28/24 08:40 06/28/24 08:40 06/28/24 08:40 Pain Score Most Recent Pain Score: Most Recent Pain Score Pain Level 0 06/28/24 06:54 Assessment Mental Status: Awake (Alert & Oriented to Patient Baseline) Airway and Respiratory Function: Patent airway with normal (patient baseline) respiratory exam Cardiovascular Function: Hemodynamically Stable Hydration Status: Adequately Hydrated Nausea & Vomiting: No Nausea or Vomiting Pain: Pt. Denies Any Pain Peripheral Nerve Block: Patient did not receive a nerve block
[2024-06-28 09:10] VITALS: BP 124/107; PULSE 78; RESP 16; TEMP 36.6; O2SAT 96
== END 2024-06-28 09:19 | disposition home or self-care (01) ==
LOC: SUR 06:49
PROVIDERS: Visit Provider Surgery
PROC: 0DJD8ZZ Inspection of Lower Intestinal Tract, Via Natural or Artificial Opening Endoscopic (ICD-10-PCS; CPT 45378; principal; 2024-06-28 08:15)
DX: Z12.11 Encounter for screening for malignant neoplasm of colon (principal); D12.3 Benign neoplasm of transverse colon; K64.8 Other hemorrhoids; K57.30 Diverticulosis of large intestine without perforation or abscess without bleeding; I10 Essential (primary) hypertension; E11.9 Type 2 diabetes mellitus without complications
CPT/HCPCS: 45380; 88305; J2003; J2704

== ENCOUNTER 2024-07-26 08:04 | Outpatient (REF) | payer OTHER, SELFPAY ==
--- OUTSIDE RECORDS SUMMARY | 2024-07-26 08:06 | XMS_ITS | Encounter Summary ---
Author Organization [facility] Address [address] [place] [address] Care Team Providers Care Mud Mixer Operator Name Role Phone Unknown, Provider Primary Care Provider Unava ilable Encounter Details Date Type Department Care Team (Late st Contact Info) Description 09/22/2023 Lab Requisition [facility] Pathology & Laboratory Medicine - [facility] [address], [place] [id number] Outr Resulting Lab, Provider Social History Tobacco Use Types Packs/Day Years Used Date Smoking Tobacco: Never Assessed Sex and Gender Information Value Date Recorded Sex Assigned at Not on file Legal Sex Male 18:25 EST Gender Identity Not on file Sexual Orientation Not on file documented as of this encounter Plan of Treatment Not on file documented as of this encounter Procedures Procedure Name Priority Date/Time Associated Diagnosis Comments PSA TOTAL, DIAGNOSTIC Routine 09/22/2023 7:30 EST documented in this encounter Results * PSA TOTAL, DIAGNOSTIC (09/22/2023 7:30 EST) PSA 0.7 <=3.5 ng/mL 09/22/2023 23:09 EST [facility] Blood VENOUS BLOOD / Unknown 09/22/2023 7:30 EST 09/22/2023 21:40 EST Narrative [facility] - 09/22/2023 23:09 EST NOTE: Serum PSA concentration should not be interpreted as absolute evidence for the presence or absence of malignant disease. Assayed on Siemens [employer] XPT using chemiluminescent technology.??Values obtained by using different assay methods cannot be used interchangeably. us Provider Outr Resulting Lab CHEMISTRY & BLOOD GA S ORDERABLES Final Result [facility] [address] [place] [address] documented in this encounter Visit Diagnoses Not on filedocumented in this encounter Care Teams Mud Mixer Operator Relationship Specialty Start Date End Date Unknown, Provider, PCP - General 12/22/11 documented as of this encounter
--- OUTSIDE RECORDS SUMMARY | 2024-07-26 08:06 | XMS_ITS | Referral Summary ---
Author Organization [facility] Address [address] [place] [address] Care Team Providers Care Manager Of Care Name Role Phone Unknown, Provider Primary Care Provider Unava ilable Encounters Date Type Department Care Team Description 07/01/2024 Lab Requisition [facility] Pathology & Laboratory Medicine - [facility] [address] [place] [address] Alberto Camilo MD Encounter for screening for malignant neoplasm of colon from Last 3 Months Social History Tobacco Use Types Packs/Day Years Used Date Smoking Tobacco: Never Assessed Sex and Gender Information Value Date Recorded Sex Assigned at Not on file Legal Sex Male 18:25 EST Gender Identity Not on file Sexual Orientation Not on file Plan of Treatment Not on file Procedures Procedure Name Priority Date/Time Associated Diagnosis Comments SURGICAL PATHOLOGY Today 06/28/2024 8:25 EST Encounter for screening for malignant neoplasm of colon from Last 3 Months Results * SURGICAL PATHOLOGY (06/28/2024 8:25 EST) Note to Patient The following pathology results have been interpreted by your pathologist and may be available to you before your health provider has had the opportunity to review them. Please allow time for your provider to receive these results and explore management options, if applicable. 07/02/2024 10:47 EST [facility] Final Diagnosis A. COLON, 100 CMS, POLYP, BIOPSY: - Tubular adenoma. 07/02/2024 10:47 EST [facility] Attestation By the signature below, the attending physician certifies that they have 1) personally conducted a gross and/or microscopic examination of the described specimen(s), and/or personally interpreted the results of laboratory testing of the described specimen(s), and 2) personally rendered or confirmed the above diagnosis. 07/02/2024 10:47 EST [facility] at 1047 Clinical History History of colon polyps, diverticulosis 07/02/2024 10:47 EST [facility] Gross Description A. Received in formalin labelled with proper patient identification (initials N, L) and colon polyp @ 100 cm are 2 grajeda tissues (each 0.3 x 0.1 x 0.1 cm). Entirely submitted in A1. Buffy Dex 07/01/2024 9:45 07/02/2024 10:47 EST [facility] Performing Lab [facility] 07/02/2024 10:47 [facility] Scanned Images 07/02/2024 10:47 [facility] Tissue COLON STRUCTURE / Unknown 06/28/2024 8:25 EST 07/01/2024 7:58 EST us Alberto Camilo MD PATHOLOGY ORDERABLES Final Resu lt [facility] [address] [place] [address] from Last 3 Months Insurance [facility] Care Teams Manager Of Care Relationship Specialty Start Date End Date Unknown, Provider, PCP - General 12/22/11
--- OUTSIDE RECORDS SUMMARY | 2024-07-26 08:06 | XMS_ITS | Encounter Summary ---
Author Organization [facility] Address [address] [place] [address] Care Team Providers Care Second Floor Operator Name Role Phone Unknown, Provider Primary Care Provider Unava ilable Encounter Details Date Type Department Care Team (Late st Contact Info) Description 07/01/2024 Lab Requisition [facility] Pathology & Laboratory Medicine - [facility] [address] [place] [address] Alberto Camilo MD [address] [place] [address], [address] [place] [address] Encounter for screening for malignant neoplasm of colon Social History Tobacco Use Types Packs/Day Years [...] for screening for malignant neoplasm of colon documented in this encounter Results * SURGICAL PATHOLOGY (06/28/2024 8:25 EST) Note to Patient The following pathology results have been interpreted by your pathologist and may be available to you before your health provider has had the opportunity to review them. Please allow time for your provider to receive these results and explore management options, if applicable. 07/02/2024 10:47 EST [facility] Final Diagnosis A. COLON, 100 CMS, POLYP, BIOPSY: - Tubular adenoma. 07/02/2024 10:47 [facility] Attestation By the signature below, the attending physician certifies that they have 1) personally conducted a gross and/or microscopic examination of the described specimen(s), and/or personally interpreted the results of laboratory testing of the described specimen(s), and 2) personally rendered or confirmed the above diagnosis. 07/02/2024 10:47 [facility] at 1047 Clinical History History of colon polyps, diverticulosis 07/02/2024 10:47 [facility] Gross Description A. Received in formalin labelled with proper patient identification (initials N, L) and colon polyp @ 100 cm are 2 grajeda tissues (each 0.3 x 0.1 x 0.1 cm). Entirely submitted in A1. Buffy 07/01/2024 9:45 07/02/2024 10:47 [facility] Performing Lab [facility] 07/02/2024 10:47 [facility] Scanned Images 07/02/2024 10:47 [facility] Tissue COLON STRUCTURE / Unknown 06/28/2024 8:25 EST 07/01/2024 7:58 EST us Alberto Camilo MD PATHOLOGY ORDERABLES Final Resu lt [facility] [address] [place] [address] documented in this encounter Visit Diagnoses Diagnosis Encounter for screening for malignant neoplasm of colon Special screening for malignant neoplasms, colon documented in this encounter Care Teams Second Floor Operator Relationship Specialty Start Date End Date Unknown, Provider, PCP - General 12/22/11 documented as of this encounter
--- OUTSIDE RECORDS SUMMARY | 2024-07-26 08:06 | XMS_ITS | Clinical Summary ---
Author Organization [facility] Address [address] [place] [address] Care Team Providers Care Data Compiler Name Role Phone Unknown, Provider Primary Care Provider Unava ilable Encounters Date Type Department Care Team Description 07/01/[address] [facility] Pathology & Laboratory Medicine - [facility] [address] [place] [address] Alberto Camilo MD Encounter for screening for malignant neoplasm of colon from Last 3 Months Social History Tobacco Use Types Packs/Day Years Used Date Smoking Tobacco: Never Assessed Sex and Gender Information Value Date Recorded Sex Assigned at Not on file Legal Sex Male 18:25 EST Gender Identity Not on file Sexual Orientation Not on file Plan of Treatment Health Maintenance Due Date Last Done Comments Hepatitis C Screen 1965 Hepatitis B Vaccine (1 of 3 - 19+ 3-dose series) 09/12 COVID-19 Vaccine ( season) 2024 Procedures Procedure Name Priority Date/Time Associated Diagnosis [...] management options, if applicable. 07/02/2024 10:47 EST [facility] Final Diagnosis A. COLON, 100 CMS, POLYP, BIOPSY: - Tubular adenoma. 07/02/2024 10:47 [facility] Attestation By the signature below, the attending physician certifies that they have 1) personally conducted a gross and/or microscopic examination of the described specimen(s), and/or personally interpreted the results of laboratory testing of the described specimen(s), and 2) personally rendered or confirmed the above diagnosis. 07/02/2024 10:47 [facility] at 1047 Clinical History History of colon polyps, diverticulosis 07/02/2024 10:47 [facility] Gross Description A. Received in formalin labelled with proper patient identification (initials N, L) and colon polyp @ 100 cm are 2 grajeda tissues (each 0.3 x 0.1 x 0.1 cm). Entirely submitted in A1. Buffy 07/01/2024 9:45 07/02/2024 10:47 [facility] Performing Lab [facility] 07/02/2024 10:47 [facility] Scanned Images 07/02/2024 10:47 [facility] Tissue COLON STRUCTURE / Unknown 06/28/2024 8:25 EST 07/01/2024 7:58 EST us Alberto Camilo MD PATHOLOGY ORDERABLES Final Resu lt [facility] [address] [place] [address] from Last 3 Months Insurance [facility] Care Teams Data Compiler Relationship Specialty Start Date End Date Unknown, Provider, PCP - General 12/22/11
--- OUTSIDE RECORDS SUMMARY | 2024-07-26 08:06 | XMS_ITS | Encounter Summary ---
Author Organization [facility] Address [address] [place] [address] Care Team Providers Care Fire Investigator Name Role Phone Unknown, Provider Primary Care Provider Unava ilable Encounter Details Date Type Department Care Team (Late st Contact Info) Description 08/12/2019 Lab Requisition [facility] Pathology & Laboratory Medicine - [address] [address] Unknown, Provider, Social History Tobacco Use Types Packs/Day Years [...] Procedure Name Priority Date/Time Associated Diagnosis Comments BASIC METABOLIC PANEL (BMP) Routine 08/09/2019 13:39 EST documented in this encounter Results * (ABNORMAL) BASIC METABOLIC PANEL (BMP) (08/09/2019 13:39 EST) Sodium 141 136 - 145 mEq/L 08/12/2019 21:51 [facility] Potassium 5.6(H) 3.5 - 5.0 mEq/L 08/12/2019 21:51 [facility] Chloride 102 96 - 110 mEq/L 08/12/2019 21:51 [facility] CO2 Total 30 22 - 32 mEq/L 08/12/2019 21:51 [facility] Glucose 138(H) 70 - 100 mg/dL 08/12/2019 21:51 [facility] Calcium 9.9 8.5 - 10.5 mg/dL 08/12/2019 21:51 EST [facility] Calculated Calcium 9.4 8.5 - 10.5 mg/dL 08/12/2019 21:51 [facility] BUN 18 10 - 26 mg/dL 08/12/2019 21:51 [facility] Creatinine 0.65(L) 0.66 - 1.25 mg/dL 08/12/2019 21:51 [facility] eGFR 110 >60 mL/min/1.7 3m2 08/12/2019 21:51 [facility] Comment:eGFR calculated jazz g CKD-EPI equation for non- Americans. Multiply eGFR by 1.16 for patients. Blood VENOUS BLOOD / Unknown 08/09/2019 13:39 EST 08/12/2019 21:23 EST Narrative [facility] - 08/12/2019 21:51 EST 3 us Provider Unknown CHEMISTRY & BLOOD GAS ORDERA BLES Final Result [facility] [address] [place] [address] documented in this encounter Visit Diagnoses Not on filedocumented in this encounter Care Teams Fire Investigator Relationship Specialty Start Date End Date Unknown, Provider, PCP - General 12/22/11 documented as of this encounter
--- OUTSIDE RECORDS SUMMARY | 2024-07-26 08:06 | XMS_ITS | Encounter Summary ---
Author Organization [facility] Address [address] [place] [id number] Care Team Providers Care Dental Instrument Maker Name Role Phone Unavailable Primary Care Provider Unavailabl e Encounter Details Date Type Department Care Team (Late st Contact Info) Description 12/21/[address] [facility] - [facility] ([facility]) [address], [place] [id number] Wilfred Epstein MD [address] [place] [address] Social History Tobacco Use Types Packs/Day Years [...] Priority Date/Time Associated Diagnosis Comments SURGICAL PATHOLOGY Routine 12/21/2011 0:00 EDT documented in this encounter Results * SURGICAL PATHOLOGY (12/21/2011 0:00 EDT) Pathology Report: SURGICAL PATHOLOGY REPORT Reports generated via electronic interface contain original data; however they are lacking the format of the original report. Caution should be taken when reading/interpreti ng unformatted reports. Name: ? PABLO SPIVEY ? Accession #: ? [id number] ? : ? 1965 (Age: 46) ??M ? Collect Date: ? 12/21/2011 ? Location: ? [facility] ? Receive Date: ? 12/21/2011 ? Provider: WILFRED EPSTEIN MD Copy to: ARYA OCHOA MD ? Final Pathologic Diagnosis: A. ?Colon, ascending, polyp, biopsy: 1. ?Colonic mucosa with no specific pathologic features. ??See comment. B. ?Colon, transverse, polyp, biopsy: 1. ?Tubular adenoma. Comment: ? Deeper levels have been examined in specimen (A). ??(Dr. Lopez)/[facility] Document reviewed and electronically signed by: MIGNON WYNN MD Report ??Date: 12/23/2011 15:29 By the signature above, the attending physician certifies that he/she has personally conducted a gross and/or microscopic examination of the described specimens and rendered or confirmed the above diagnosis. Specimen(s) Received: A. ?Ascending colon polyp B. ? Transverse colon polyp Clinical History: ? Rectal bleeding Gross Description: ? Received in formalin labelled Pablo Spivey and ascending colon polyp is a single 0.5 x 0.3 x 0.2 cm pink-grajeda irregular soft tissue. ??Submitted in toto as (A). Received in formalin labelled Pablo Spivey and transverse colon polyp are two pink-grajeda irregular soft tissues, 0.3 x 0.2 x 0.2 cm and 0.4 x 0.3 x 0.2 cm. Submitted in toto as (B). ??(Bob Prieto)/[facility] End of Report [facility] 12/21/2011 12/21/2011 17: 01 EDT us Wilfred Epstein MD PATHOLOGY ORDERABLES Final Resul t Performing Organization Address City/State/[facility] Co de Phone Number [facility] [address] [place] [address] documented in this encounter Visit Diagnoses Not on filedocumented in this encounter
--- OUTSIDE RECORDS SUMMARY | 2024-07-26 08:06 | XMS_ITS | Encounter Summary ---
Author Organization [facility] Address [address] [place] [address] Care Team Providers Care Phys Therapist Name Role Phone Unavailable Primary Care Provider Unavailabl e Encounter Details Date Type Department Care Team (Late st Contact Info) Description 07/10/2000 Results Only [facility] - [facility] [address] [place] [address] Steven Szymanski, DO [address] [facility] [address] [place], [place] [id number] Social History Tobacco Use Types Packs/Day Years [...] Date/Time Associated Diagnosis Comments SURGICAL PATHOLOGY Routine 07/10/2000 0:00 EST documented in this encounter Results * SURGICAL PATHOLOGY (07/10/2000 0:00 EST) Pathology Report: SURGICAL PATHOLOGY REPORT Reports generated via electronic interface contain original data; however they are lacking the format of the original report. Caution should be taken when reading/interpreti ng unformatted reports. Name: ? PABLO SPIVEY ? Accession #: ? [id number] ? : ? 1965 (Age: 34) ??M ? Collect Date: ? 07/10/2000 ? Location: ? [facility] ? Receive Date: ? 07/11/2000 ? Provider: STEVEN SZYMANSKI DO Copy to: GURU RIVERS MD ? Final Pathologic Diagnosis: ? Appendix, appendectomy: 1. ?Acute suppurative appendicitis with near rupture and severe periappendicitis. 2. ?No definitive perforation identified. Document reviewed and electronically signed by: Kun Frias MD Report ??Date: 07/13/2000 16:30 By the signature above, the attending physician certifies that he/she has personally conducted a gross and/or microscopic examination of the described specimens and rendered or confirmed the above diagnosis. Specimen(s) Received: ? Appendix Clinical History: ? RLQ pain x24 hours; appendicitis Gross Description: ? Received in formalin labelled Alexander and appendix is a vermiform appendix that measures 11.5 x 1.0 x 1.1 cm. ??There is a moderate amount of attached periappendiceal fat. ??The serosal surface is grajeda-pink and markedly hyperemic with white exudate. ??The proximal resection margin is inked black. The appendiceal wall measures 0.1 to 0.2 cm in thickness. ??The lumen is pinpoint and is filled with grajeda-brown material. ??There is no gross evidence of a perforation. ??There is, however, two sections where the serosal surface seems to be pulling away from the muscle wall. ??The longitudinal tip that is bisected and the proximal resection margin are submitted as (A1). ??Three area representative cross sections including two that have the pulled away serosa are submitted as (A2). (Dr. Sands)/jigar End of Report [facility] 07/10/2000 07/11/2000 15: 33 EST us Steven Szymanski DO PATHOLOGY ORDERABLES nal Result Performing Organization Address City/State/[facility] Co de Phone Number [facility] [address] [place] [address] documented in this encounter Visit Diagnoses Not on filedocumented in this encounter
[2024-07-26 14:39] LABS: Hemoglobin A1C 7.8 % (<5.7)
[2024-07-26 14:46] LABS: ALT 16 U/L (16-63); AST 9 U/L (15-37); Albumin 3.7 g/dL (3.4-5.0); Alkaline Phosphatase 69 U/L (46-116); Anion Gap 6.9 mmol/L (3-11); BUN 19 mg/dL (7-18); Bilirubin, Total 0.39 mg/dL (0.2-1.0); CO2 31.1 mmol/L (21.0-32.0); CREATININE 0.9 mg/dL (0.70-1.30); Calcium 9.2 mg/dL (8.5-10.1); Calculated LDL 43 mg/dL (<100); Chloride 105 mmol/L (98-107); Cholesterol 110 mg/dL (<200); Estimated GFR 98.38 (mL/min/1.73m2); Glucose 172 mg/dL (74-106); HDL Cholesterol 43 mg/dL (40-60); Potassium 5.1 mmol/L (3.5-5.1); Sodium 143 mmol/L (136-145); Total Protein 6.7 g/dL (6.4-8.2); Triglyceride 121 mg/dL (<150)
== END 2024-07-26 08:05 | disposition home or self-care (01) ==
LOC: NCHCN 08:04
PROVIDERS: PCP Physician Assistant; Visit Provider Physician Assistant
DX: E11.9 Type 2 diabetes mellitus without complications (principal)
CPT/HCPCS: 80053; 80061; 83036